=== PATIENT | male | born 2000 | race Hispanic/Latino ===

== ENCOUNTER 2025-01-09 18:19 | Emergency (ER) | payer SELFPAY ==
[2025-01-09] MEDS ORDERED: Cyclobenzaprine 10 MG TAB ONE (20:05)
== END 2025-01-09 21:00 | disposition home or self-care (01) ==
LOC: ERS 18:19
DX: M54.6 Pain in thoracic spine (principal); V49.9XXA Car occupant (driver) (passenger) injured in unspecified traffic accident, initial encounter; Y92.410 Unspecified street and highway as the place of occurrence of the external cause
CPT/HCPCS: 99283